=== PATIENT | female | born 1980 | race Caucasian/White ===

== ENCOUNTER 2017-09-10 12:14 | Day surgery (SDC) | payer OTHER ==
[2017-09-10] VITALS (8 sets, daily range): BP systolic 121–136; BP diastolic 73–84
[~2017-09-10] VITALS: Ht 165.1 cm; Wt 85.7 kg
[~2017-09-10 12:14] MED LIST: ASPI-1265 PO; DOCUMENT DATE & TIME OF BETA-BLOCKER PO ONE; ESOM40CA54 PO; METO25TA6 PO; ceFOXitin 2 GM ADDvantage bag 100 ML IV ONE; famotidine 20mg tablet PO ONE; ringers solution, lacted 1,000 ML IV SCH
[2017-09-10] MEDS ORDERED: LIDOcaine 1% (10mg/ml) 2ml vial ONE (13:04)
[2017-09-10] MEDS ORDERED: BUPIVAcaine/PF 2.5mg/ml (0.25%) 10ml vial ONE ×2 (13:15→15:18)
[2017-09-10 14:07] LABS: BASOPHILS % (AUTO) 0.3 % (0-1); EOSINOPHILS # (AUTO) 0.1 X10'3 (0-0.9); EOSINOPHILS % (AUTO) 1.3 % (0-6); LYMPHOCYTES # (AUTO) 3.3 X10'3 (1.1-4.8); LYMPHOCYTES % (AUTO) 44.1 % (21-51); MEAN CORPUSCULAR HEMOGLOBIN 28.8 PG (27.0-31.0); MEAN CORPUSCULAR HGB CONC 33.5 % (33.0-36.5); MEAN CORPUSCULAR VOLUME 85.8 FL (78-98); MEAN PLATELET VOLUME 7.6 FL (7.4-10.4); MONOCYTES # (AUTO) 0.5 X10'3 (0-0.9); MONOCYTES % (AUTO) 6.3 % (2-12); NEUTROPHILS # (AUTO) 3.6 X10'3 (1.8-7.7); PRE OP HEMATOCRIT 36.9 % (35.0-45.0); PRE OP HEMOGLOBIN 12.4 g/dL (12.0-16.0); PRE OP PLATELET COUNT 283 X10'3 (140-440); RED CELL DISTRIBUTION WIDTH 14.2 % (11.5-14.5)
[2017-09-10 14:14] LABS: COLOR,URINE Yellow (Yellow); GLUCOSE, URINE Negative (Neg); KETONES,URINE Negative (Neg); LEUKOCYTE ESTERASE ,URINE Negative (Neg); NITRITES, URINE Negative (Neg); OCCULT BLOOD,URINE Negative (Neg); PH,URINE 5.5 (4.8-8.0); PROTEIN,URINE Negative (Neg); UROBILINOGEN,URINE 0.2 E.U/dL (0.2-1.0)
[2017-09-10 14:21] LABS: CLARITY,URINE Slightly Cloudy (Clear); UA COLLECTION TYPE CLN CATCH MIDSTREAM
[2017-09-10 14:22] LABS: BACTERIA,URINE 1+ /HPF (Neg); RBC,URINE NONE SEEN /HPF (0-2); SQUAMOUS EPITHELIAL CELL,UR MANY /LPF (FEW); WBC,URINE 0-4 /HPF (0-4)
[2017-09-10 14:22] LABS: ALBUMIN 3.6 G/DL (3.4-5.0); ALBUMIN/GLOBULIN RATIO 0.9 (1.1-1.5); ALKALINE PHOSPHATASE 54 IU/L (46-116); BLOOD UREA NITROGEN 10 MG/DL (7-18); BUN/CREATININE RATIO 10.9 (6.6-38.0); CALCIUM 9.4 MG/DL (8.5-10.1); CHLORIDE 104 MMOL/L (99-107); CREATININE 0.92 MG/DL (0.40-0.90); PRE OP ALT 23 U/L (30-65); PRE OP ANION GAP 6 (8-16); PRE OP AST 20 U/L (10-37); PRE OP BILIRUB, TOTAL 0.5 MG/DL (0.0-1.0); PRE OP GLUCOSE 77 MG/DL (70-104); PRE OP POTASSIUM 3.5 MMOL/L (3.4-5.1); PRE OP SODIUM 138 MMOL/L (135-145); TOTAL CARBON DIOXIDE 28.1 MMOL/L (24-32); TOTAL PROTEIN 7.6 G/DL (6.4-8.2); eGFR 69 ML/MIN
[2017-09-10] MEDS ORDERED: ceFAZolin 1000mg inj ONE (15:18)
[2017-09-10] MEDS ORDERED: sevoflurane 250ml liquid IH ONE (16:49)
[2017-09-10] MEDS ORDERED: fentaNYL/PF 50MCG/1 ML 2ML syringe ONE (16:57)
[2017-09-10] MEDS ORDERED: midazolam 2 mg/2 ml injection ONE (16:58)
[2017-09-10] MEDS ORDERED: ringers solution, lacted 1,000 ML IV SCH (17:51)
[2017-09-10] MEDS ORDERED: ketorolac trometh. 30mg/ml inj. IV ONE (17:55)
[2017-09-10] MEDS ORDERED: proCHLORperazine 10 MG/2 ml inj IV PRN (17:55)
[2017-09-10] MEDS ORDERED: ondansetron/PF 4mg/2ml inj IV PRN (17:55)
[2017-09-10] MEDS ORDERED: morphine 4 MG/ML inj SYRINge IV PRN ×2 (17:55)
[2017-09-10] MEDS ORDERED: meperidine/PF 25mg/ml syringe IV PRN ×3 (17:55)
[2017-09-10] MEDS ORDERED: dexamethasone sod phosphate 4mg/ml inj. ONE (18:07)
[2017-09-10] MEDS ORDERED: glycopyrrolate 0.2mg/ml inj ONE (18:07)
[2017-09-10] MEDS ORDERED: rocuronium 10mg/ml inj IV ONE (18:07)
[2017-09-10] MEDS ORDERED: neostigmine methylsulfate 1 MG/ML 10ml vial ONE (18:07)
[2017-09-10] MEDS ORDERED: ondansetron/PF 4mg/2ml inj ONE (18:08)
[2017-09-10] MEDS ORDERED: acetaminophen 1,000mg/100ml IV 100 ML IV ONE (18:45)
== END 2017-09-10 19:20 | disposition home or self-care (01) ==
LOC: PAS 12:14
PROVIDERS: ATTEND Surgery
DX: K80.10 Calculus of gallbladder with chronic cholecystitis without obstruction (principal); K21.9 Gastro-esophageal reflux disease without esophagitis; I44.1 Atrioventricular block, second degree; I10 Essential (primary) hypertension; I49.8 Other specified cardiac arrhythmias; Z95.0 Presence of cardiac pacemaker; Z79.82 Long term (current) use of aspirin; Z88.2 Allergy status to sulfonamides; Z98.890 Other specified postprocedural states; Z79.899 Other long term (current) drug therapy
CPT/HCPCS: 36415; 47562; 80053; 81001; 85025; 93005; J0131; J0694; J1100; J1885; J2250; J2405; J2710; J3010; J3490; J7120; A7000; J0690

== ENCOUNTER 2017-09-18 08:13 | Emergency (ER) | payer OTHER ==
[~2017-09-18] VITALS: Ht 165.1 cm; Wt 85.9 kg
[~2017-09-18 08:13] MED LIST changes: -DOCUMENT DATE & TIME OF BETA-BLOCKER PO ONE; -ceFOXitin 2 GM ADDvantage bag 100 ML IV ONE; -famotidine 20mg tablet PO ONE; -ringers solution, lacted 1,000 ML IV SCH
[2017-09-18] MEDS ORDERED: metoclopramide 5 mg/ml inj IV ONE (08:25)
[2017-09-18] MEDS ORDERED: famotidine/PF 10 mg/ml inj IV ONE (08:25)
[2017-09-18] MEDS ORDERED: LIDOcaine Viscous 15ml cup PO ONE (08:25)
[2017-09-18] MEDS ORDERED: sucralfate 1 gm tablet PO ONE (08:25)
[2017-09-18] MEDS ORDERED: normal saline 1000ML IV soln IVB ONE (08:25)
[2017-09-18] MEDS ORDERED: mag hydrox/Alum hydrox/simeth 30ml oral suspension PO ONE (08:25)
[2017-09-18 08:36] LABS: BASOPHILS # (AUTO) 0.1 X10'3 (0-0.2); BASOPHILS % (AUTO) 0.9 % (0-1); EOSINOPHILS # (AUTO) 0.2 X10'3 (0-0.9); HEMATOCRIT 36.5 % (35.0-45.0); HEMOGLOBIN 12.4 g/dl (12.0-16.0); LYMPHOCYTES # (AUTO) 3.7 X10'3 (1.1-4.8); LYMPHOCYTES % (AUTO) 40.2 % (21-51); MEAN CORPUSCULAR HEMOGLOBIN 28.7 PG (27.0-31.0); MEAN CORPUSCULAR HGB CONC 33.9 % (33.0-36.5); MEAN CORPUSCULAR VOLUME 84.6 FL (78-98); MEAN PLATELET VOLUME 7.5 FL (7.4-10.4); MONOCYTES # (AUTO) 0.6 X10'3 (0-0.9); MONOCYTES % (AUTO) 6.1 % (2-12); NEUTROPHILS # (AUTO) 4.7 X10'3 (1.8-7.7); NEUTROPHILS % (AUTO) 50.8 % (42-75); PLATELET COUNT 331 X10'3 (140-440); RED BLOOD COUNT 4.32 X10'6 (4.20-5.60); RED CELL DISTRIBUTION WIDTH 13.3 % (11.5-14.5); WHITE BLOOD COUNT 9.2 X10'3 (4.5-11.0)
[2017-09-18 08:47] LABS: INR 0.9 INR; PARTIAL THROMBOPLASTIN TIME 25 SECONDS (22-32); PROTHROMBIN TIME 9.8 SECONDS (9.0-12.0)
[2017-09-18 08:58] LABS: ALANINE AMINOTRANSFERASE 33 U/L (12-78); ALBUMIN 3.5 G/DL (3.4-5.0); ALBUMIN/GLOBULIN RATIO 0.8 (1.1-1.5); ALKALINE PHOSPHATASE 60 IU/L (46-116); ANION GAP 9 (8-16); ASPARTATE AMINO TRANSFERASE 21 U/L (10-37); BILIRUBIN,TOTAL 0.4 MG/DL (0.1-1.0); BLOOD UREA NITROGEN 19 MG/DL (7-18); BUN/CREATININE RATIO 20.4 (6.6-38.0); CALCIUM 9.2 MG/DL (8.5-10.1); CHLORIDE 101 MMOL/L (99-107); CREATININE 0.93 MG/DL (0.40-0.90); GLUCOSE 100 MG/DL (70-104); LIPASE 141 U/L (73-393); POTASSIUM 3.9 MMOL/L (3.5-5.1); SODIUM 136 MMOL/L (135-145); TOTAL CARBON DIOXIDE 25.6 MMOL/L (24-32); TOTAL PROTEIN 7.9 G/DL (6.4-8.2); eGFR 69 ML/MIN
[2017-09-18 09:08] VITALS: BP 105/66
== END 2017-09-18 09:49 | disposition home or self-care (01) ==
LOC: ER 08:13
DX: S30.1XXA Contusion of abdominal wall, initial encounter (principal); K21.9 Gastro-esophageal reflux disease without esophagitis; Z90.49 Acquired absence of other specified parts of digestive tract; Z88.2 Allergy status to sulfonamides; Z79.82 Long term (current) use of aspirin; Z79.899 Other long term (current) drug therapy; X58.XXXA Exposure to other specified factors, initial encounter; Y93.89 Activity, other specified; Y92.89 Other specified places as the place of occurrence of the external cause; Y99.8 Other external cause status
CPT/HCPCS: 36415; 71045; 80053; 83690; 84484; 85025; 85610; 85730; 93005; 96374; 96375; 99285; J2765; J3490; J7030; 96361